=== PATIENT | female | born 1940 | race Caucasian/White ===

== ENCOUNTER → 2019-05-31 | Outpatient (CLI) | payer OTHER ==
[~2019-05-31] MED LIST: CALCIUM PO; CALGLU500 PO; CEPH500 PO; CO-Q 10 PO; DILT180 PO; FURO40 PO; LEVSOD112 PO; LISI20 PO; MAG PO; MAGN84 PO; MULVITA PO; OXYACE5T PO; POTA10T PO; POTCHL20ER PO; RXOXYACE PO; UBID100 PO; VITAMIN D3 PO; WARF5 PO
== END | disposition home or self-care (01) ==
LOC: LAB SHORT 18:45 → LAB 18:45
DX: N39.0 Urinary tract infection, site not specified (principal)
CPT/HCPCS: 87086

== ENCOUNTER → 2019-06-03 | Outpatient (CLI) | payer OTHER ==
[2019-06-03 12:42] LABS: Phosphorus, Urine 61.9 mg/dL (20.0-60.0)
[2019-06-03 12:43] LABS: Calcium, Urine <5.0 mg/dL (< 17.5); Calcium, Urine Calculation Unable to Calculate mg/24hrs (42.0-353.0)
[2019-06-03 12:46] LABS: Protein, Urine Quantitative 53.9 mg/dL (0.0-11.9); Uric Acid, Urine 24.5 mg/dL (7.5-49.5)
== END ==
LOC: LAB SHORT 08:01 → OLS 08:01
PROVIDERS: Internal Medicine Nephrology
DX: N18.3 Chronic kidney disease, stage 3 (moderate) (principal); D63.1 Anemia in chronic kidney disease; N25.81 Secondary hyperparathyroidism of renal origin; E55.9 Vitamin D deficiency, unspecified; E78.00 Pure hypercholesterolemia, unspecified; R76.9 Abnormal immunological finding in serum, unspecified; R94.5 Abnormal results of liver function studies; R94.6 Abnormal results of thyroid function studies; G60.9 Hereditary and idiopathic neuropathy, unspecified; Z79.01 Long term (current) use of anticoagulants
CPT/HCPCS: 81050; 82043; 82340; 82570; 84105; 84133; 84156; 84300; 84560

== ENCOUNTER → 2020-08-03 | Outpatient (CLI) | payer OTHER | END | disposition home or self-care (01) | LOC: LAB 14:05 → LAB FUT 07-29 14:05 → EDSTATUS 08-03 14:05 → LAB SHORT 08-03 14:05 | DX: R19.7 Diarrhea, unspecified (principal) | CPT/HCPCS: 87015; 87045; 87046; 87177; 87205; 87209; 87493; 87899 ==

== ENCOUNTER 2020-09-10 08:46 | Day surgery (SDC) | payer OTHER ==
[~2020-09-10] VITALS: Ht 172.7 cm; Wt 114.2 kg
--- NOTE | 2020-09-10 09:40 | NUR ---
[facility] in [facility] warming gown applied. History, Chart, Medications and Allergies reviewed before start of procedure.Lungs clear T/O to Auscultation. Patient confirms NPO status and agrees with scheduled surgery. Pre-Op teaching done. Pt verbalizes understanding. Patient States Post-Procedure ride home has been arranged.
--- NOTE | 2020-09-10 10:18 | NUR ---
09/10/20 1018 Haven Kam PATIENT DETERMINED TO BE ASA APPROPRIATE FOR PROPOFOL SEDATION PRIOR TO START OF PROCEDURE BY . 3-LEAD EKG REVIEWED WITH PHYSICIAN PRIOR TO START OF PROCEDURE.PATIENT CONFIRMS NPO STATUS AND AGREES WITH SCHEDULED PROCEDURE.History, Chart, Medications and Allergies reviewed before start of procedure.MONITOR INTACT WITH CONTINUOUS PULSE OXIMETRY AND INTERMITTENT BP.O2 VIA N/C INTACT THROUGHOUT SEDATION/PROCEDURE.
--- NOTE | 2020-09-10 11:10 | NUR ---
Patient up to Ambulate independently. Gait steady. Discharge instructions reviewed with patient. Patient verbalizes understanding. Copy given to patient to take home. Patient States Post-Procedure ride home has been arranged. Discharged via wheelchair to private car for ride home.
== END 2020-09-10 11:22 | disposition home or self-care (01) ==
LOC: ORSCMMR 08:46 → ORD 09:30 → ORSCMMR 11:22
PROVIDERS: Internal Medicine Gastroenterology
PROC: 0DBL8ZX Excision of Transverse Colon, Via Natural or Artificial Opening Endoscopic, Diagnostic (ICD-10-PCS; principal; 2020-09-10 09:30)
PROC: 0DBM8ZX Excision of Descending Colon, Via Natural or Artificial Opening Endoscopic, Diagnostic (ICD-10-PCS; principal; 2020-09-10 09:30)
PROC: 0DBB8ZX Excision of Ileum, Via Natural or Artificial Opening Endoscopic, Diagnostic (ICD-10-PCS; principal; 2020-09-10 09:30)
PROC: 0DBK8ZX Excision of Ascending Colon, Via Natural or Artificial Opening Endoscopic, Diagnostic (ICD-10-PCS; principal; 2020-09-10 09:30)
PROC: 0DBN8ZX Excision of Sigmoid Colon, Via Natural or Artificial Opening Endoscopic, Diagnostic (ICD-10-PCS; principal; 2020-09-10 09:30)
DX: R19.4 Change in bowel habit (principal); I48.91 Unspecified atrial fibrillation; E03.9 Hypothyroidism, unspecified; I10 Essential (primary) hypertension; K64.8 Other hemorrhoids; K52.831 Collagenous colitis; D12.2 Benign neoplasm of ascending colon; D12.4 Benign neoplasm of descending colon; D12.5 Benign neoplasm of sigmoid colon; K63.89 Other specified diseases of intestine; Z79.01 Long term (current) use of anticoagulants; Z79.899 Other long term (current) drug therapy
CPT/HCPCS: 36416; 85610; 88305; J2704; J7120

== ENCOUNTER → 2022-04-21 | Outpatient (CLI) | payer OTHER ==
[~2022-04-21] MED LIST changes: +ASCO500 PO; +B COMPLEX FORM0.4 MG PO; +CALCIUM-MAGNES1 EAC9 PO; +CARDIZEM CD180 M6 PO; +CARTIA XT PO; +ELIQUIS5 M2 PO; +EUTHYROX125 MC1 PO; +KRILL OIL500 MG PO; +MAGCHL64ER PO; +PANT40 PO; +PROBIOTIC1 EA13 PO; +VITAMIN D310 MC4 PO; +Vitamin D PO; +ZESTRIL40 M1 PO
[2022-04-21 17:40] LABS: Appearance, Urine Hazy (Clear); Bilirubin, Urine Neg (Neg); Blood, Urine Neg (Neg); Color, Urine Yellow (P-Yellow); Glucose Qualitative, Urine Neg (Neg); Ketones, Urine Neg (Neg); Leukocyte Esterase, Urine 1+ (Neg); Nitrite, Urine Neg (Neg); Protein, Urine Neg (Neg); Urobilinogen, Urine NORM (Normal)
[2022-04-21 18:27] LABS: Bacteria Mod /hpf; Red Blood Cells, Urine 0-2 /hpf (0-2); Squamous Epithelial Cells Many /hpf (Few)
== END | disposition home or self-care (01) ==
LOC: LAB SHORT 11:20 → LAB 11:20
PROVIDERS: Nurse Practitioner Family
DX: N39.0 Urinary tract infection, site not specified (principal)
CPT/HCPCS: 81001; 87086

== ENCOUNTER 2022-04-22 13:16 | Observation (INO) | payer OTHER ==
[~2022-04-22] VITALS: Ht 170.2 cm; Wt 108.9 kg
[~2022-04-22 13:16] MED LIST changes: -ASCO500 PO; -B COMPLEX FORM0.4 MG PO; -CALCIUM-MAGNES1 EAC9 PO; -CARDIZEM CD180 M6 PO; -CARTIA XT PO; -ELIQUIS5 M2 PO; -EUTHYROX125 MC1 PO; -KRILL OIL500 MG PO; -MAGCHL64ER PO; -PANT40 PO; -PROBIOTIC1 EA13 PO; -VITAMIN D310 MC4 PO; -Vitamin D PO; -ZESTRIL40 M1 PO
[2022-04-22 14:08] LABS: BASOPHILS ABSOLUTE AUTO 0.03 K/mm3 (0.00-0.23); BASOPHILS PERCENT AUTO 0 % (0-2); EOSINOPHILS ABSOLUTE AUTO 0.13 K/mm3 (0.00-0.68); EOSINOPHILS PERCENT AUTO 2 % (0-6); Hemoglobin 7.1 g/dL (11.5-16.0); IMMATURE GRAN ABSOLUTE AUTO 0.02 K/mm3 (0.00-0.10); IMMATURE GRAN PERCENT AUTO 0 % (0-1); LYMPHOCYTES ABSOLUTE AUTO 1.22 K/mm3 (0.84-5.20); LYMPHOCYTES PERCENT AUTO 16 % (21-46); MONOCYTES ABSOLUTE AUTO 0.46 K/mm3 (0.16-1.47); MONOCYTES PERCENT AUTO 6 % (4-13); Mean Corpuscular HGB 30.3 pg (26.0-34.0); Mean Corpuscular HGB Conc 32.3 g/dL (31.5-36.5); Mean Corpuscular Volume 94 fL (80-100); Mean Platelet Volume 9.5 fL (9.1-12.4); NEUTROPHILS ABSOLUTE AUTO 5.88 K/mm3 (1.96-9.15); NEUTROPHILS PERCENT AUTO 76 % (41-73); Platelet Count 454 K/mm3 (150-400); RDW Coefficient Variation 15.3 % (11.7-14.2); RDW Standard Deviation 51.3 fL (35.1-46.3); Red Blood Cell Count 2.34 M/mm3 (3.80-5.20); White Blood Cell Count 7.74 K/mm3 (4.00-11.30)
[2022-04-22 14:32] LABS: International Normalized Ratio 2.32; Prothrombin Time Results 23.1 Sec (9.7-11.5)
[2022-04-22 14:43] LABS: Albumin, Blood 2.8 g/dL (3.4-5.0); Albumin/Globulin Ratio 0.8 (0.8-1.8); Bilirubin, Total 0.2 mg/dL (0.1-1.0); Bun/Creatinine Ratio 26.7 (12.0-20.0); Calcium, Blood 9.4 mg/dL (8.5-10.1); Creatinine, Blood 1.95 mg/dL (0.40-1.00); Globulin, Blood 3.7 g/dL (2.2-4.0); Potassium, Blood 5.2 mmol/L (3.5-5.5); Total Protein, Blood 6.5 g/dL (6.4-8.2)
[2022-04-22] MEDS ORDERED: LISI20 PO (17:55)
[2022-04-22] MEDS ORDERED: EUTHYROX125 MC1 PO (17:56)
[2022-04-22] MEDS ORDERED: CALCIUM-MAGNES1 EAC9 PO (17:58)
[2022-04-22] MEDS ORDERED: B COMPLEX FORM0.4 MG PO (17:59)
[2022-04-22] MEDS ORDERED: KRILL OIL500 MG PO (17:59)
[2022-04-22 23:11] LABS: Hematocrit 21.4 % (33.0-51.0); Hemoglobin 7.1 g/dL (11.5-16.0)
[2022-04-22] MEDS ORDERED: MAGCHL64ER PO (23:39)
[2022-04-22] MEDS ORDERED: VITAMIN D310 MC4 PO ×2 (23:40)
[2022-04-22] MEDS ORDERED: ASCO500 PO (23:41)
[2022-04-23 01:14] LABS: Hematocrit 20.5 % (33.0-51.0); Hemoglobin 6.8 g/dL (11.5-16.0); Mean Corpuscular HGB 30.6 pg (26.0-34.0); Mean Corpuscular HGB Conc 33.2 g/dL (31.5-36.5); Mean Corpuscular Volume 92 fL (80-100); Mean Platelet Volume 9.5 fL (9.1-12.4); Platelet Count 354 K/mm3 (150-400); RDW Standard Deviation 52.9 fL (35.1-46.3); Red Blood Cell Count 2.22 M/mm3 (3.80-5.20)
[2022-04-23 01:28] LABS: International Normalized Ratio 2.44; Prothrombin Time Results 24.2 Sec (9.7-11.5)
[2022-04-23 01:31] LABS: Bun/Creatinine Ratio 24.5 (12.0-20.0); Calcium, Blood 8.9 mg/dL (8.5-10.1); Creatinine, Blood 1.88 mg/dL (0.40-1.00); Potassium, Blood 4.7 mmol/L (3.5-5.5)
--- NOTE | 2022-04-23 06:18 | NUR ---
[facility] SUMMARY: PT ADMITTED TO [facility] AT APPROXIMATELY 1999. PT IS A&OX4. DAUGHTER ATTENTIVE AT BEDSIDE WHEN ADDMITTED TO ANSWER QUESTIONS. PT ALSO GOOD HISTORIAN. PT TRANSFERED TO BED VIA SLIDER SLEET. PT REPORTS POOR AMBULATION SINCE FX LLE, AMBULATES WITH HEAVY 2 ASSIST. WELL APPROXIMATED SCARE NOTED ON LLE, PIN HEAR SIZED AREA NOTED TO BE CAUTERIZED PER THE PT. AREA CLOSED AND COVERED WITH BANDAGE. PT DENIES ANY SOB, CHEST PAIN, ABDOMENAL PAIN, OR NAUSEA. NO STOOLS DURING THIS SHIFT. VOIDING LARGE AMOUNTS OF CLEAR, YELLOW URINE WITHOUT DIFFICULTY. BP'S SOFT. H&H LOW, TREATED WITH 2 UNITS OF PRBC'S. TOLERATED TRANSFUSIONS WELL. BP'S INCREASED TO BASELINE WITH SBP 110'S. PROTONIX GTT INFUSING PER ORDERS. PT DENIES ANY DIZZIENESS/LIGHTHEADEDNESS. O2 SATS > 92% ON RA.
[2022-04-23 07:30] LABS: Hematocrit 23.9 % (33.0-51.0)
--- NOTE | 2022-04-23 08:56 | NUR ---
ROUNDING: HOSPITALIST AND RESIDENT IN ROOM TO ASSESS PATIENT. AWAITING GI. PT MAY HAVE SIPS OF CLEAR LIQUIDS.
--- NOTE | 2022-04-23 13:17 | NUR ---
PROCEDURE: CALL TO DAY SURGERY, PLAN FOR UPPER ENDOSCOPY THIS AFTERNOON. PT AND FAMILY UPDATED. PT NPO. BLOOD CONSENT ALREADY COMPLETED.
[2022-04-23 15:45] LABS: Hematocrit 25.2 % (33.0-51.0); Hemoglobin 8.3 g/dL (11.5-16.0)
[2022-04-23 15:55] LABS: International Normalized Ratio 2.13; Prothrombin Time Results 21.3 Sec (9.7-11.5)
--- NOTE | 2022-04-23 17:10 | NUR ---
PROCEDURE: PT OUT OF ROOM FOR UPPER ENDOSCOPY. DAUGHTER AT BEDSIDE. OBSTETRICAL TECH NOTIFIED. WILL CONT TO MONITOR WHEN PT RETURNS TO ROOM.
--- NOTE | 2022-04-23 17:18 | NUR ---
THE PATIENT WAS BROUGHT TO DAY SURGERY FOR HER PROCEDURE.
--- NOTE | 2022-04-23 17:43 | NUR ---
04/23/22 1743 Sophia Casper HISTORY, CHART, MEDICATIONS AND ALLERGIES REVIEWED BEFORE START OF PROCEDURE. PATIENT CONFIRMS NPO STATUS AND AGREES WITH SCHEDULED PROCEDURE. 3-LEAD EKG REVIEWED WITH PHYSICIAN PRIOR TO START OF PROCEDURE. MONITOR INTACT WITH CONTINUOUS PULSE OXIMETRY,CAPNOGRAPHY, 3-LEAD EKG, INTERMITTENT BP. SUPPLEMENTAL O2 TO BE TITRATED THROUGHOUT PROCEDURE TO MAINTAIN O2 SATURATION ABOVE 90%. PATIENT DETERMINED TO BE ASA APPROPRIATE FOR PROPOFOL SEDATION PRIOR TO START OF PROCEDURE BY DR. ANDERSON.
--- NOTE | 2022-04-23 18:22 | NUR ---
PT HAS BEEN STABLE THIS SHIFT. HAD UPPER ENDOSCOPY THIS EVENING. NO STOOLS THIS SHIFT. NEEDS SAMPLE FOR H.PYLORI. H+H CONTINUES TO IMPROVE. PT MAY START F.L. DIET. PROTONIX GGT CHANGED TO IV PUSH. IV S.L. PT VOIDING WELL ON BEDPAN. PT HAS SIGNIFICANT SWELLING TO LEFT LEG R/T RECENT SURGERY, ELEVATED ON PILLOWS. DRESSING TO LEFT LATERAL LEG CHANGED TODAY. PT USES CALL LIGHT APPROPRIATELY NEEDED.
[2022-04-23] MEDS ORDERED: ZESTRIL40 M1 PO ×2 (20:12)
[2022-04-23] MEDS ORDERED: Vitamin D PO (20:13)
[2022-04-23] MEDS ORDERED: CARDIZEM CD180 M6 PO ×2 (21:24)
[2022-04-24 04:14] LABS: Hematocrit 26.9 % (33.0-51.0); Hemoglobin 8.9 g/dL (11.5-16.0)
[2022-04-24 04:31] LABS: International Normalized Ratio 1.77; Prothrombin Time Results 17.9 Sec (9.7-11.5)
[2022-04-24 04:34] LABS: Albumin, Blood 2.8 g/dL (3.4-5.0); Anion Gap 6 mmol/L (6-16); Blood Urea Nitrogen 32 mg/dL (8-24); Bun/Creatinine Ratio 19.4 (12.0-20.0); CO2, Blood 24 mmol/L (21-32); Calcium, Blood 9.1 mg/dL (8.5-10.1); Chloride, Blood 110 mmol/L (98-108); Creatinine, Blood 1.65 mg/dL (0.40-1.00); Glomerular Filtration Rate 31 (60-); Glucose, Blood 92 mg/dL (70-99); Phosphorus, Blood 2.9 mg/dL (2.5-4.9); Potassium, Blood 4.7 mmol/L (3.5-5.5); Sodium, Blood 140 mmol/L (136-145)
--- NOTE | 2022-04-24 05:04 | NUR ---
SHIFT SUMMARY: PT SLEPT ON AND OFF A MAJORITY OF THE SHIFT. ALERT AND ORIENTED X4, BP AND HR STABLE, AFEBRILE, SATING >94% ON RA. PT UP TO BEDSIDE CAMMODE THIS SHIFT WITH TWO PERSON MAX ASSIST. PT HAD ONE BROWN LIQUID STOOL THIS SHIFT. STOOL SAMPLE SENT. NO COMPLAINTS OF NAUSEA OR VOMITING. H+H 8.9 THIS AM. PT CONTINUING TO SLEEP. WILL REPORT TO ONCOMING RN.
--- NOTE | 2022-04-24 07:29 | NUR ---
ASSUMED CARE: PT RESTING QUIETLY AT THIS TIME. NSR ON TELE. PROTONIX GTT RUNNING PER ORDERS. NO ACUTE NEEDS OR CONCERNS AT THIS TIME.
--- NOTE | 2022-04-24 08:42 | NUR ---
CAME TO BEDSIDE TO GIVE PT AM MEDS BUT SHE REFUSED AT THIS TIME. STATED SHE WOULD TAKE THEM LATER WHEN SHE WAS MORE AWAKE AND READY TO EAT BREAKFAST.
--- NOTE | 2022-04-24 17:11 | NUR ---
PT TRANSFERRED VIA WHEEL CHAIR TO MEDICAL FLOOR. REPORT GIVEN TO MEDICAL FLOOR RN. NO FURTHER NEEDS OR CONCERNS.
--- NOTE | 2022-04-25 04:16 | NUR ---
SHIFT SUMMARY PATIENT HAD NO ACUTE CHANGES OBSERVED. AXOX 3-4 AND SBA STAND PIVOT TO BSC. POWERGLIDE KAILEY INTACT. DENIES PAIN, SOB, AND N/V. VSS/AFEBRILE. POSSIBLE DC IF STABLE H&H. COOPERATIVE WITH CARE. SLEPT MOST OF SHIFT. CALL LIGHT IN REACH. BED IN LOWEST POSITION. WILL CONTINUE TO MONITOR UNTIL DAY SHIFT NURSE ASSUMES CARE.
[2022-04-25 05:45] LABS: Hematocrit 24.9 % (33.0-51.0); Hemoglobin 8.3 g/dL (11.5-16.0)
[2022-04-25 06:09] LABS: Albumin, Blood 2.5 g/dL (3.4-5.0); Anion Gap 8 mmol/L (6-16); Blood Urea Nitrogen 25 mg/dL (8-24); Bun/Creatinine Ratio 16.7 (12.0-20.0); CO2, Blood 23 mmol/L (21-32); Calcium, Blood 9.1 mg/dL (8.5-10.1); Chloride, Blood 109 mmol/L (98-108); Glomerular Filtration Rate 35 (60-); Glucose, Blood 88 mg/dL (70-99); Magnesium, Blood 2.3 mg/dL (1.6-2.4); Phosphorus, Blood 3.1 mg/dL (2.5-4.9); Potassium, Blood 4.6 mmol/L (3.5-5.5); Sodium, Blood 140 mmol/L (136-145)
[2022-04-25] MEDS ORDERED: PANT40 PO (12:43)
== END 2022-04-25 14:34 | disposition home or self-care (01) ==
LOC: ER 13:16 → MEDS 13:18 → PCU 13:18 → ER 16:53 → PCU 20:15 → MEDS 04-24 17:02
PROVIDERS: Family Medicine; Family Medicine Adult Medicine; Physician Assistant; Student in an Organized Health Care Education/Training Program; ADMIT Internal Medicine
PROC: 0DJ08ZZ Inspection of Upper Intestinal Tract, Via Natural or Artificial Opening Endoscopic (ICD-10-PCS; principal; 2022-04-23 17:00)
DX: K92.1 Melena (principal); D64.9 Anemia, unspecified; K25.9 Gastric ulcer, unspecified as acute or chronic, without hemorrhage or perforation; K26.9 Duodenal ulcer, unspecified as acute or chronic, without hemorrhage or perforation; I48.91 Unspecified atrial fibrillation; Z79.01 Long term (current) use of anticoagulants; E03.9 Hypothyroidism, unspecified; I12.9 Hypertensive chronic kidney disease with stage 1 through stage 4 chronic kidney disease, or unspecified chronic kidney disease; N18.9 Chronic kidney disease, unspecified; Z90.710 Acquired absence of both cervix and uterus; S72.90XA Unspecified fracture of unspecified femur, initial encounter for closed fracture; E66.01 Morbid (severe) obesity due to excess calories; Z68.37 Body mass index [BMI] 37.0-37.9, adult; Z66 Do not resuscitate
CPT/HCPCS: 36415; 36430; 74177; 80048; 80053; 80069; 82272; 83735; 85014; 85018; 85025; 85027; 85610; 86850; 86900; 86901; 86923; 87338; 94762; 96365-59; 96366; 96376; 99285-25; A9270; C9113; G0378; J2405; J2704; J7030; J7120; P9016; Q9967

== ENCOUNTER → 2022-04-22 | Outpatient (CLI) | payer OTHER ==
[2022-04-22 12:54] LABS: BASOPHILS ABSOLUTE AUTO 0.03 K/mm3 (0.00-0.23); BASOPHILS PERCENT AUTO 0 % (0-2); EOSINOPHILS ABSOLUTE AUTO 0.14 K/mm3 (0.00-0.68); EOSINOPHILS PERCENT AUTO 2 % (0-6); Hematocrit 20.8 % (33.0-51.0); Hemoglobin 6.7 g/dL (11.5-16.0); IMMATURE GRAN ABSOLUTE AUTO 0.04 K/mm3 (0.00-0.10); IMMATURE GRAN PERCENT AUTO 1 % (0-1); LYMPHOCYTES ABSOLUTE AUTO 1.21 K/mm3 (0.84-5.20); LYMPHOCYTES PERCENT AUTO 16 % (21-46); MONOCYTES ABSOLUTE AUTO 0.48 K/mm3 (0.16-1.47); MONOCYTES PERCENT AUTO 6 % (4-13); Mean Corpuscular HGB 30.2 pg (26.0-34.0); Mean Corpuscular HGB Conc 32.2 g/dL (31.5-36.5); Mean Corpuscular Volume 94 fL (80-100); Mean Platelet Volume 9.5 fL (9.1-12.4); NEUTROPHILS ABSOLUTE AUTO 5.65 K/mm3 (1.96-9.15); NEUTROPHILS PERCENT AUTO 75 % (41-73); Platelet Count 448 K/mm3 (150-400); RDW Coefficient Variation 15.5 % (11.7-14.2); RDW Standard Deviation 51.3 fL (35.1-46.3); Red Blood Cell Count 2.22 M/mm3 (3.80-5.20); White Blood Cell Count 7.55 K/mm3 (4.00-11.30)
[2022-04-22 13:04] LABS: Albumin, Blood 2.8 g/dL (3.4-5.0); Albumin/Globulin Ratio 0.8 (0.8-1.8); Bilirubin, Total 0.2 mg/dL (0.1-1.0); Bun/Creatinine Ratio 24.3 (12.0-20.0); Calcium, Blood 9.3 mg/dL (8.5-10.1); Creatinine, Blood 2.06 mg/dL (0.40-1.00); Globulin, Blood 3.7 g/dL (2.2-4.0); Potassium, Blood 5.1 mmol/L (3.5-5.5); Total Protein, Blood 6.5 g/dL (6.4-8.2)
[2022-04-22 13:54] LABS: International Normalized Ratio 2.43; Prothrombin Time Results 24.1 Sec (9.7-11.5)
== END | disposition home or self-care (01) ==
LOC: LAB SHORT 12:48 → LAB 12:48
PROVIDERS: Family Medicine
DX: Z79.01 Long term (current) use of anticoagulants (principal); Z51.81 Encounter for therapeutic drug level monitoring; K92.1 Melena
CPT/HCPCS: 80053; 83880; 85025; 85610

== ENCOUNTER 2022-04-27 13:53 | Observation (INO) | payer OTHER ==
[~2022-04-27] VITALS: Ht 170.2 cm; Wt 109.3 kg
[~2022-04-27 13:53] MED LIST changes: +ASCO500 PO; +B COMPLEX FORM0.4 MG PO; +CALCIUM-MAGNES1 EAC9 PO; +CARDIZEM CD180 M6 PO; +EUTHYROX125 MC1 PO; +KRILL OIL500 MG PO; +MAGCHL64ER PO; +PANT40 PO; +VITAMIN D310 MC4 PO; +Vitamin D PO; +ZESTRIL40 M1 PO
[2022-04-27 15:34] LABS: Albumin, Blood 2.9 g/dL (3.4-5.0); Albumin/Globulin Ratio 0.8 (0.8-1.8); Bilirubin, Total 0.5 mg/dL (0.1-1.0); Bun/Creatinine Ratio 18.8 (12.0-20.0); Calcium, Blood 9.5 mg/dL (8.5-10.1); Creatinine, Blood 1.7 mg/dL (0.40-1.00); Globulin, Blood 3.8 g/dL (2.2-4.0); Potassium, Blood 4.9 mmol/L (3.5-5.5); Total Protein, Blood 6.7 g/dL (6.4-8.2)
[2022-04-27 18:29] LABS: BASOPHILS ABSOLUTE AUTO 0.03 K/mm3 (0.00-0.23); BASOPHILS PERCENT AUTO 0 % (0-2); EOSINOPHILS ABSOLUTE AUTO 0.01 K/mm3 (0.00-0.68); EOSINOPHILS PERCENT AUTO 0 % (0-6); Hematocrit 30.3 % (33.0-51.0); Hemoglobin 9.8 g/dL (11.5-16.0); IMMATURE GRAN ABSOLUTE AUTO 0.13 K/mm3 (0.00-0.10); IMMATURE GRAN PERCENT AUTO 1 % (0-1); LYMPHOCYTES ABSOLUTE AUTO 0.46 K/mm3 (0.84-5.20); LYMPHOCYTES PERCENT AUTO 3 % (21-46); MONOCYTES ABSOLUTE AUTO 0.65 K/mm3 (0.16-1.47); MONOCYTES PERCENT AUTO 4 % (4-13); Mean Corpuscular HGB 30.2 pg (26.0-34.0); Mean Corpuscular HGB Conc 32.3 g/dL (31.5-36.5); Mean Corpuscular Volume 93 fL (80-100); Mean Platelet Volume 9.3 fL (9.1-12.4); NEUTROPHILS ABSOLUTE AUTO 15.23 K/mm3 (1.96-9.15); NEUTROPHILS PERCENT AUTO 92 % (41-73); Platelet Count 447 K/mm3 (150-400); RDW Coefficient Variation 16.7 % (11.7-14.2); RDW Standard Deviation 54.8 fL (35.1-46.3); Red Blood Cell Count 3.25 M/mm3 (3.80-5.20); White Blood Cell Count 16.51 K/mm3 (4.00-11.30)
[2022-04-27 21:04] LABS: International Normalized Ratio 1.17; Prothrombin Time Results 12.2 Sec (9.7-11.5)
[2022-04-27 21:26] LABS: Source, Urine Straight Cath
[2022-04-27 21:30] LABS: Bilirubin, Urine Neg (Neg); Blood, Urine Neg (Neg); Glucose Qualitative, Urine Neg (Neg); Ketones, Urine Neg (Neg); Leukocyte Esterase, Urine 1+ (Neg); Nitrite, Urine Neg (Neg); Protein, Urine 1+ (Neg); Specific Gravity, Urine 1.015 (1.003-1.022); Urobilinogen, Urine NORM (Normal)
[2022-04-27 21:36] LABS: Appearance, Urine Clear (Clear); Color, Urine Yellow (P-Yellow)
[2022-04-27 21:37] LABS: Amorphous Light (0-Heavy); Bacteria Few /hpf; Mucus Mod (0-Heavy); Red Blood Cells, Urine Not Seen /hpf (0-2); Squamous Epithelial Cells Few /hpf (Few); White Blood Cells, Urine 0-2 /hpf (0-5)
[2022-04-27] MEDS ORDERED: CARTIA XT PO ×2 (22:09)
[2022-04-28 05:31] LABS: BASOPHILS ABSOLUTE AUTO 0.02 K/mm3 (0.00-0.23); BASOPHILS PERCENT AUTO 0 % (0-2); EOSINOPHILS ABSOLUTE AUTO 0.01 K/mm3 (0.00-0.68); EOSINOPHILS PERCENT AUTO 0 % (0-6); Hematocrit 27.2 % (33.0-51.0); Hemoglobin 8.6 g/dL (11.5-16.0); IMMATURE GRAN ABSOLUTE AUTO 0.05 K/mm3 (0.00-0.10); IMMATURE GRAN PERCENT AUTO 1 % (0-1); LYMPHOCYTES ABSOLUTE AUTO 0.49 K/mm3 (0.84-5.20); LYMPHOCYTES PERCENT AUTO 5 % (21-46); MONOCYTES ABSOLUTE AUTO 0.39 K/mm3 (0.16-1.47); MONOCYTES PERCENT AUTO 4 % (4-13); Mean Corpuscular HGB 29.7 pg (26.0-34.0); Mean Corpuscular HGB Conc 31.6 g/dL (31.5-36.5); Mean Corpuscular Volume 94 fL (80-100); Mean Platelet Volume 9.2 fL (9.1-12.4); NEUTROPHILS ABSOLUTE AUTO 9.04 K/mm3 (1.96-9.15); NEUTROPHILS PERCENT AUTO 90 % (41-73); Platelet Count 417 K/mm3 (150-400); RDW Coefficient Variation 16.5 % (11.7-14.2); RDW Standard Deviation 54.7 fL (35.1-46.3)
--- NOTE | 2022-04-28 05:45 | NUR ---
PT SLEPT T/O SHIFT- DECREASED REDNESS TO LEFT LEG COMPARED TO ED OUTLINE- SUPPOSITORY GIVEN FOR PT REQUESTED OF DISTENDED- PT HAD LARGE BM-
[2022-04-28 05:59] LABS: Bun/Creatinine Ratio 20.5 (12.0-20.0); Calcium, Blood 9.2 mg/dL (8.5-10.1); Creatinine, Blood 1.46 mg/dL (0.40-1.00); Potassium, Blood 4.4 mmol/L (3.5-5.5)
--- NOTE | 2022-04-28 09:13 | NUR ---
Patients dee catheter was removed at 0900.
--- NOTE | 2022-04-28 17:13 | NUR ---
Shift Summary A/Ox3. Pleasant/cooperative. Family at bedside. Denies pain. Meds whole with water. Page d/c this am, voiding well with mixed continence. Up to bedside commode x 2 assist. Marked red area to LLE appears to be improving. Worked with PT. Daughter watned to d/c coumadin and start either eliquis or xarelto; Dr. Lee notified of request. Multiple incontinent bowel movements today. Poor appetite. Calling appropriately for needs.
--- NOTE | 2022-04-29 04:26 | NUR ---
SHIFT SUMMARY PT A&OX 4- PT UP TO BSC WITH 2 PERSON ASSIST WITH GAIT BELT AND FWW- PT 1 PERSON BRIEF CHANGES FOR INCONTINET EPISODES - PT SLEPT T/O THE NIGHT
[2022-04-29 05:22] LABS: BASOPHILS ABSOLUTE AUTO 0.02 K/mm3 (0.00-0.23); BASOPHILS PERCENT AUTO 0 % (0-2); EOSINOPHILS ABSOLUTE AUTO 0.17 K/mm3 (0.00-0.68); EOSINOPHILS PERCENT AUTO 4 % (0-6); Hematocrit 25.8 % (33.0-51.0); Hemoglobin 8.3 g/dL (11.5-16.0); IMMATURE GRAN ABSOLUTE AUTO 0.02 K/mm3 (0.00-0.10); IMMATURE GRAN PERCENT AUTO 0 % (0-1); LYMPHOCYTES PERCENT AUTO 19 % (21-46); MONOCYTES PERCENT AUTO 11 % (4-13); Mean Corpuscular HGB Conc 32.2 g/dL (31.5-36.5); Mean Corpuscular Volume 93 fL (80-100); Mean Platelet Volume 9.2 fL (9.1-12.4); NEUTROPHILS PERCENT AUTO 66 % (41-73); Platelet Count 381 K/mm3 (150-400); RDW Coefficient Variation 16.3 % (11.7-14.2); Red Blood Cell Count 2.77 M/mm3 (3.80-5.20); White Blood Cell Count 4.71 K/mm3 (4.00-11.30)
[2022-04-29 05:57] LABS: Albumin, Blood 2.3 g/dL (3.4-5.0); Anion Gap 6 mmol/L (6-16); Blood Urea Nitrogen 33 mg/dL (8-24); Bun/Creatinine Ratio 24.3 (12.0-20.0); CO2, Blood 24 mmol/L (21-32); Calcium, Blood 8.8 mg/dL (8.5-10.1); Chloride, Blood 108 mmol/L (98-108); Creatinine, Blood 1.36 mg/dL (0.40-1.00); Glomerular Filtration Rate 39 (60-); Glucose, Blood 105 mg/dL (70-99); Magnesium, Blood 1.8 mg/dL (1.6-2.4); Phosphorus, Blood 2.5 mg/dL (2.5-4.9); Potassium, Blood 3.9 mmol/L (3.5-5.5); Sodium, Blood 138 mmol/L (136-145)
[2022-04-29] MEDS ORDERED: ELIQUIS5 M2 PO ×2 (11:23)
[2022-04-29] MEDS ORDERED: CEPH500 PO ×2 (11:24)
[2022-04-29] MEDS ORDERED: PROBIOTIC1 EA13 PO ×2 (11:24)
[2022-04-29 12:10] LABS: SARS-Cov-2 (COVID-19) PCR, MMC NEGATIVE (NEGATIVE)
--- NOTE | 2022-04-29 14:36 | NUR ---
Discharge Summary A/Ox3, dc to [facility]. Report given to receiving nurse Carina. IV removed. Daughter assisted with packing belongings and transported patient to facility. Had continent bowel movement today. Appetite much improved. Worked with therapy. Up in chair for meals. Denies pain.
== END 2022-04-29 13:58 | disposition hospice, inpatient (51) ==
LOC: ER 13:53 → MEDS 13:54 → ER 20:22 → MEDS 21:24
PROVIDERS: Emergency Medicine; Family Medicine; Physician Assistant; ADMIT Internal Medicine
DX: A41.9 Sepsis, unspecified organism (principal); L03.116 Cellulitis of left lower limb; I12.9 Hypertensive chronic kidney disease with stage 1 through stage 4 chronic kidney disease, or unspecified chronic kidney disease; N18.30 Chronic kidney disease, stage 3 unspecified; D63.1 Anemia in chronic kidney disease; E03.9 Hypothyroidism, unspecified; I48.20 Chronic atrial fibrillation, unspecified; E66.01 Morbid (severe) obesity due to excess calories; K59.00 Constipation, unspecified; K26.4 Chronic or unspecified duodenal ulcer with hemorrhage; Z88.6 Allergy status to analgesic agent; Z88.5 Allergy status to narcotic agent; Z88.1 Allergy status to other antibiotic agents; Z96.653 Presence of artificial knee joint, bilateral; Z79.01 Long term (current) use of anticoagulants; Z66 Do not resuscitate; Z20.822 Contact with and (suspected) exposure to COVID-19
CPT/HCPCS: 36415; 71045; 80048; 80053; 80069; 81001; 83605; 83735; 84484; 85025; 85610; 87040; 93005; 93010; 93970; 96365; 96366; 97110; 97116; 97162; 97530; A9270; G0378; J0690; J1650; J3475; J7030; U0004

== ENCOUNTER → 2022-07-12 | Outpatient (CLI) | payer OTHER ==
[~2022-07-12] MED LIST changes: +CARTIA XT PO; +ELIQUIS5 M2 PO; +PROBIOTIC1 EA13 PO
[2022-07-12 13:12] LABS: Albumin, Blood 2.4 g/dL (3.4-5.0); Albumin/Globulin Ratio 0.8 (0.8-1.8); Bilirubin, Total 0.2 mg/dL (0.1-1.0); Bun/Creatinine Ratio 19.9 (12.0-20.0); Calcium, Blood 9.8 mg/dL (8.5-10.1); Creatinine, Blood 1.41 mg/dL (0.40-1.00); Globulin, Blood 3.2 g/dL (2.2-4.0); Potassium, Blood 3.9 mmol/L (3.5-5.5); Total Protein, Blood 5.6 g/dL (6.4-8.2)
[2022-07-12 13:15] LABS: CHOL/HDL RATIO 3.2; Cholesterol 170 mg/dL (50-200); HDL Cholesterol 53 mg/dL (>39); LDL/HDL RATIO 1.9; Low Density Lipoprotein Chol 100 mg/dL (0-110); Triglycerides 83 mg/dL (30-160); Very Low Density Lipoprot Chol 16 mg/dL (6-32)
[2022-07-12 13:30] LABS: Hematocrit 28.7 % (33.0-51.0); Mean Corpuscular HGB 30.4 pg (26.0-34.0); Mean Corpuscular HGB Conc 31.4 g/dL (31.5-36.5); Mean Corpuscular Volume 97 fL (80-100); Mean Platelet Volume 10.2 fL (9.1-12.4); Platelet Count 228 K/mm3 (150-400); RDW Coefficient Variation 15.6 % (11.7-14.2); RDW Standard Deviation 55.8 fL (35.1-46.3); Red Blood Cell Count 2.96 M/mm3 (3.80-5.20); White Blood Cell Count 3.65 K/mm3 (4.00-11.30)
[2022-07-12 15:01] LABS: BASOPHILS ABSOLUTE MAN 0.03 K/mm3 (0.00-0.23); BASOPHILS PERCENT MAN 1 % (0-2); EOSINOPHILS PERCENT MAN 0 % (0-6); LYMPHOCYTES ABSOLUTE MAN 1.42 K/mm3 (0.84-5.20); LYMPHOCYTES PERCENT MAN 39 % (21-46); MONOCYTES ABSOLUTE MAN 0.21 K/mm3 (0.16-1.47); MONOCYTES PERCENT MAN 6 % (4-13); NEUTROPHILS ABSOLUTE MAN 1.97 K/mm3 (1.96-9.15); SEG NEUTROPHILS PERCENT MAN 54 % (41-73); TOTAL CELLS COUNTED 100
== END | disposition home or self-care (01) ==
LOC: LAB SHORT 10:30
PROVIDERS: Internal Medicine Nephrology; Nurse Practitioner Family
DX: N18.30 Chronic kidney disease, stage 3 unspecified (principal); D63.1 Anemia in chronic kidney disease; N25.81 Secondary hyperparathyroidism of renal origin; E55.9 Vitamin D deficiency, unspecified; E78.00 Pure hypercholesterolemia, unspecified; G60.9 Hereditary and idiopathic neuropathy, unspecified; R76.9 Abnormal immunological finding in serum, unspecified; R94.5 Abnormal results of liver function studies; I48.91 Unspecified atrial fibrillation; M86.152 Other acute osteomyelitis, left femur; M97.12XD Periprosthetic fracture around internal prosthetic left knee joint, subsequent encounter
CPT/HCPCS: 80053; 80061; 84100; 85007; 85027; 85651

== ENCOUNTER 2022-09-24 09:28 | Emergency (ER) | payer OTHER ==
[~2022-09-24] VITALS: Ht 170.2 cm; Wt 108.9 kg
== END 2022-09-24 14:25 | disposition home or self-care (01) ==
LOC: ER 09:28
DX: S00.83XA Contusion of other part of head, initial encounter (principal); S63.502A Unspecified sprain of left wrist, initial encounter; W18.39XA Other fall on same level, initial encounter; Z79.01 Long term (current) use of anticoagulants; I48.91 Unspecified atrial fibrillation; E03.9 Hypothyroidism, unspecified; I10 Essential (primary) hypertension; Z79.899 Other long term (current) drug therapy; Z88.6 Allergy status to analgesic agent; Z88.5 Allergy status to narcotic agent; Z88.2 Allergy status to sulfonamides; Z88.8 Allergy status to other drugs, medicaments and biological substances
CPT/HCPCS: 70450; 73110; A9270

== ENCOUNTER → 2023-01-16 | Outpatient (CLI) | payer OTHER ==
[2023-01-16 14:15] LABS: Albumin, Blood 3.3 g/dL (3.4-5.0); Anion Gap 7 mmol/L (6-16); Blood Urea Nitrogen 36 mg/dL (8-24); Bun/Creatinine Ratio 24.5 (12.0-20.0); CO2, Blood 23 mmol/L (21-32); Chloride, Blood 114 mmol/L (98-108); Creatinine, Blood 1.47 mg/dL (0.40-1.00); Glomerular Filtration Rate 35 (60-); Glucose, Blood 87 mg/dL (70-99); Phosphorus, Blood 2.9 mg/dL (2.5-4.9); Potassium, Blood 4.3 mmol/L (3.5-5.5); Sodium, Blood 144 mmol/L (136-145)
== END | disposition home or self-care (01) ==
LOC: LAB SHORT 09:53 → LAB 09:53 → LAB FUT 09-10 14:50
PROVIDERS: Internal Medicine Nephrology
DX: N18.2 Chronic kidney disease, stage 2 (mild) (principal); D63.1 Anemia in chronic kidney disease
CPT/HCPCS: 36415; 80069; 85018